=== PATIENT | female | born 1960 | race African-American/Black ===

== ENCOUNTER 2024-08-11 04:42 | Day surgery (SDC) | payer OTHER ==
[2024-08-10 15:58] VITALS: BMI 26.1
[2024-08-11] MEDS ORDERED: PROPOFOL 20 ML ONE ×2 (08:54→10:23)
[2024-08-11] MEDS ORDERED: MIDAZOLAM HCL 2 MG/2 ML SINGLE DOSE VIAL ONE ×2 (08:54→09:39)
[2024-08-11] MEDS ORDERED: LIDOCAINE HCL/PF 2% SDV 5ML VIAL ONE (08:55)
[2024-08-11] MEDS ORDERED: LIDOCAINE HCL 2% (20ML MULTI-DOSE VIAL) ONE (09:39)
[2024-08-11] MEDS ORDERED: ceFAZolin SODIUM 1 GM VIAL ONE (09:54)
[2024-08-11] MEDS: LIDOCAINE HCL 2% (50ML VIAL) INF ONE (10:01)
[2024-08-11] MEDS: BUPIVACAINE HCL/PF 0.5% (5 MG/ML) 30 ML VIAL IJ ONE (10:01)
[2024-08-11] MEDS ORDERED: DEXAMETHASONE SOD PHOSPHATE 4 MG/1 ML VIAL ONE ×2 (10:02→11:02)
[2024-08-11] MEDS ORDERED: ONDANSETRON 4 MG/2 ML VIAL ONE (10:02)
[2024-08-11] MEDS: ceFAZolin SODIUM 1 GM VIAL IVPB ONE (10:02)
[2024-08-11] MEDS ORDERED: ACETAMINOPHEN 325 MG TABLET (FP) PO PRN (11:22)
[2024-08-11] MEDS ORDERED: oxyCODONE HCL 5 MG TABLET PO PRN (11:22)
[2024-08-11 12:22] VITALS: RESP 20; TEMP 97
[2024-08-11 12:24] VITALS: BP 135/71; PULSE 62
== END 2024-08-11 12:05 | disposition home or self-care (01) ==
LOC: JASU-SURG 04:42
PROVIDERS: ATTEND Student in an Organized Health Care Education/Training Program
PROC: 0QBR0ZZ Excision of Left Toe Phalanx, Open Approach (ICD-10-PCS; 2024-08-11)
PROC: 0SRQ0JZ Replacement of Left Toe Phalangeal Joint with Synthetic Substitute, Open Approach (ICD-10-PCS; principal; 2024-08-11 10:00)
DX: M20.42 Other hammer toe(s) (acquired), left foot (principal); M77.42 Metatarsalgia, left foot
CPT/HCPCS: 73630-TC-LT; 76000-TC-FY; 88304-TC; 88311-TC